=== PATIENT | male | born 1985 | race American Indian/Alaskan Native ===

== ENCOUNTER 2020-08-21 02:21 | Emergency (ER) | payer BC ==
[2020-08-21] MEDS ORDERED: SODIUM CHLORIDE 0.9% 1000 ML 1,000 ML IV ONE (02:36)
[2020-08-21 02:59] LABS: Hematocrit 38.7 % (35.5-45.6); Hemoglobin 13.2 gm/dl (11.8-15.2); Mean Corpuscular HGB Conc 34 % (32-34); Mean Corpuscular Volume 100 fl (84-94); Platelet Count 180 K/mm3 (140-440); Red Blood Count 3.86 M/mm3 (3.65-5.03); Red Cell Distribution Width 14.5 % (13.2-15.2)
[2020-08-21 03:19] LABS: Alanine Aminotransferase 19 units/L (7-56); Albumin 4.6 g/dL (3.9-5); BUN/Creatinine Ratio 8; Blood Urea Nitrogen 11 mg/dL (9-20); Calcium 9.2 mg/dL (8.4-10.2); Hemolysis Index 6
[2020-08-21 04:11] LABS: Amphetamine Screen,Urine PRESUMPTIVE POSITIVE; Benzodiazepines Screen,Urine PRESUMPTIVE NEGATIVE; Cannabinoid Screen,Urine PRESUMPTIVE POSITIVE; Cocaine Screen,Urine PRESUMPTIVE NEGATIVE; Methadone Screen,Urine PRESUMPTIVE NEGATIVE; Opiate Screen,Urine PRESUMPTIVE NEGATIVE
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
[2020-08-21 05:31] VITALS: BP 134/80
[2020-08-21 06:35] LABS: Total Cells Counted 100
[2020-08-21 06:36] LABS: Anisocytosis 1+; Platelet Estimate Consistent w Auto
== END 2020-08-21 04:50 | disposition home or self-care (01) ==
LOC: ED 02:21
DX: F10.920 Alcohol use, unspecified with intoxication, uncomplicated (principal); T43.625A Adverse effect of amphetamines, initial encounter; Y93.89 Activity, other specified
CPT/HCPCS: 36415; 80053; 80307; 85007; 85025; 96360; 99284; J7030; 80320; G0480